=== PATIENT | male | born 1990 ===

== ENCOUNTER 2021-02-16 11:59 | Emergency (ER) | payer SELFPAY ==
[2021-02-16 12:25] VITALS: BP 119/85
--- NOTE | 2021-02-16 12:44 | Emergency Department Report ---
Chief Complaint: Urogenital-Male Stated Complaint: LT HIP LEG FOOT, CHEST PENIS WHEN URINE Time Seen by Provider: 02/16/21 12:42 - HPI History of Present Illness: Complaint: "I have a lot going on but the main thing is burning." HPI: This 31-year-old male with history of asthma seizures who presents with burning with urination and discharge. He had unprotected sex with partner 1 week ago. He had odd sensation several days after. This morning after ejaculation while masturbating he noticed discharge and a burning sensation. He denies abdominal pain, back pain. Patient has history of chlamydia and trichomonas. - Exam Vital Signs: Vital Signs 02/16/21 12:24 Temperature 98.7 F Pulse Rate 86 Respiratory 18 Rate Blood Pressure 119/85 [Right] O2 Sat by Pulse 100 Oximetry MSE screening note: Focused history and physical exam performed. Due to findings the following was ordered: ED Medical Decision Making - Medical Decision Making Commended evaluation urgent care center. Patient left after medical screening exam. ED Disposition for MSE Clinical Impression: Encounter for medical screening examination Disposition: HOME / SELF CARE / HOMELESS Is pt being admited?: No Does the pt Need Aspirin: No Condition: Stable
== END 2021-02-16 13:02 | disposition home or self-care (01) ==
LOC: ED 11:59
DX: R30.9 Painful micturition, unspecified (principal); Z13.9 Encounter for screening, unspecified
CPT/HCPCS: 99281